=== PATIENT | male | born 1995 | race Caucasian/White ===

== ENCOUNTER 2018-01-03 16:22 | Emergency (ER) | payer SELFPAY ==
[2018-01-03 16:29] VITALS: BP 113/76
[2018-01-03] MEDS ORDERED: ONDANSETRON DISINTEGRATING 4 MG TAB PO ONE (17:02)
--- NOTE | 2018-01-03 17:04 | EDPHY ---
H & P Stated Complaint: MANUEL, stiff neck. sent from [facility] Time Seen by Provider: 01/03/18 16:36 HPI/ROS: CHIEF COMPLAINT: Headache, nasal congestion HISTORY OF PRESENT ILLNESS: 22-year-old male presents with headache and nasal congestion. Onset of nasal congestion 3 days ago. Associated with a mild to moderate headache, now 4/10. Associated with nausea and body aches. No known fever and no stiff neck. Taking Sudafed around the clock for nasal congestion. No pain medications taken. Had a flu vaccine today. Fully vaccinated in childhood. REVIEW OF SYSTEMS: complete 10 point ROS reviewed and is negative except for the noted elements in the HPI - Personal History Current Tetanus/Diphtheria Vaccine: Yes Current Tetanus Diphtheria and Acellular Pertussis (TDAP): Yes - Medical/Surgical History Hx Asthma: No Hx Chronic Respiratory Disease: No Hx Diabetes: No Hx Cardiac Disease: No Hx Renal Disease: No Hx Cirrhosis: No Hx Alcoholism: No Hx HIV/AIDS: No Hx Splenectomy or Spleen Trauma: No Other PMH: asthma, scarlet fever, PNA, - Social History Smoking Status: Never smoked Alcohol Use: Sober - Physical Exam Exam: General Appearance: Alert, pleasant and talkative, nontoxic-appearing Eyes: Pupils equal and round, no conjunctival pallor or injection ENT, Mouth: Mucous membranes moist, pharyngeal erythema Neck: Normal inspection, supple Respiratory: Lungs are clear to auscultation Cardiovascular: Regular rate and rhythm Gastrointestinal: Abdomen is soft and nontender Neurological: Alert, oriented x3, cranial nerves II through XII intact, motor 5 /5, sensory intact to light touch, normal gait Skin: Warm and dry Extremities: Normal inspection Psychiatric: Mood and affect normal Constitutional: Initial Vital Signs Temperature (C) 37.1 C 01/03/18 16:27 Heart Rate 68 01/03/18 16:27 Respiratory Rate 16 01/03/18 16:27 Blood Pressure 113/76 01/03/18 16:27 O2 Sat (%) 96 01/03/18 16:27 O2 Delivery Mode Room Air Allergies/Adverse Reactions: adhesive Allergy (Verified 01/03/18 16:26) diphenhydramine [From Benadryl] Allergy (Verified 01/03/18 16:26) Home Medications: Medication Instructions Recorded Advil 01/03/18 Flonase Nasal [place] 01/03/18 Ondansetron Odt [Zofran Odt 4 mg 4 mg PO Q4 PRN #6 tab 01/03/18 (*)] Pseudoephedrine ER 01/03/18 Medical Decision Making ED Course/Re-evaluation: This patient presents with URI symptoms. He is nontoxic-appearing and I do not suspect meningitis in this patient. Warning signs discussed. Will start taking ibuprofen and/or Tylenol for headache and body aches. Zofran 4 mg ODT given for nausea. Differential Diagnosis: Differential diagnosis includes but is not limited to pneumonia, otitis media, peritonsillar abscess, retropharyngeal abscess, meningitis. Departure - Departure Disposition: Home, Routine, Self-Care Clinical Impression: Viral syndrome Condition: Good Instructions: Viral Syndrome (ED) Additional Instructions: Ibuprofen 600 mg 3 times daily while the pain persists. Return for worsening symptoms or any concerns. Referrals: VIRAJ Peters,. [Clinic] - As per Instructions Prescriptions: Ondansetron Odt [Zofran Odt 4 mg (*)] 4 mg PO Q4 PRN #6 tab PRN Reason: Nausea
== END 2018-01-03 17:12 | disposition home or self-care (01) ==
DX: B34.9 Viral infection, unspecified (principal)